=== PATIENT | female | born 1995 | race Caucasian/White ===

== ENCOUNTER 2024-02-12 12:35 | Emergency (ER) | payer MEDICAID ==
[~2024-02-12] VITALS: Ht 157.5 cm; Wt 111.0 kg
[2024-02-12 12:54] VITALS: BP 126/81; PULSE 86; RESP 16; TEMP 98; O2SAT 98
[2024-02-12] MEDS: naproxen 500mg tablet PO ONE (14:23)
== END 2024-02-12 14:33 | disposition home or self-care (01) ==
LOC: ER 12:36 → EEVIPCON 12:36 → ER 14:33
DX: S40.021A Contusion of right upper arm, initial encounter (principal); F17.200 Nicotine dependence, unspecified, uncomplicated; Y04.8XXA Assault by other bodily force, initial encounter; Y93.89 Activity, other specified; Y92.89 Other specified places as the place of occurrence of the external cause; Y99.8 Other external cause status
CPT/HCPCS: 99282